=== PATIENT | female | born 2005 | race Caucasian/White ===

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

== ENCOUNTER 2023-02-14 21:44 | Emergency (ER) | payer OTHER, SELFPAY ==
[2023-02-14 21:47] VITALS: BP 128/72; PULSE 80; RESP 20; TEMP 36.9; O2SAT 99; BMI 25.8
--- NOTE | 2023-02-14 21:57 | ECG_ITS ---
[facility] Test Date: 2023-02-14 Pat Name: WEN CAIN Department: Room: - Gender: Female Rf Test Technician: : 2005 Requested By: [id number] Order Number: [id number] Reading MD: AZRA MATTHEW Measurements Intervals [place] Rate: 80 P: 63 WI: 144 QRS: 79 QRSD: 76 T: 51 QT: 380 QTc: 415 Interpretive Statements 1100 Sinus rhythm 9110 normal ECG Compared to ECG 12/22/2022 18:26:21 No significant changes Electronically Signed On 02-16-2023 7:15:39 EDT by AZRA MATTHEW
--- NOTE | 2023-02-14 22:09 | ED_ITS ---
HPI - General Adult General Chief complaint: Psychiatric Symptoms Stated complaint: SUICIDAL IDEATIONS Time Seen by Provider: 02/14/23 21:54 Source: patient Mode of arrival: walk-in Limitations: no limitations History of Present Illness HPI narrative: Patient is presenting to us with history of suicidal ideation as well as depression, the patient is presenting to us after she has been having nightmares at night after her epidural injection in November she has been having good nightmares That she have someone stabbed her, the patient mentioned that her main concern that he does not want to go to sleep because of she is afraid she will have the nightmares The patient is not suicidal as much as she is scared she does not have any plan to hurt herself or her baby Related Data Home Medications Medication Instructions Recorded Confirmed buspirone 10 mg tablet mg 02/14/23 cariprazine 3 mg capsule (Vraylar) mg 02/14/23 norethindrone 1 mg-ethinyl tab 02/14/23 estradiol 20 mcg (24)-iron 75 mg (4) tablet () ondansetron 4 mg disintegrating mg 02/14/23 tablet Previous Rx's Medication Instructions Recorded prazosin 1 mg capsule (Minipress) 1 mg PO BEDTIME #2 caps 02/14/23 Allergies Allergy/AdvReac Type Severity Reaction Status Date / Time No Known Drug Allergies Allergy Verified 02/14/23 21:47 Review of Systems ROS Status of ROS 10 or more systems reviewed and unremarkable except as noted in history and below PFSH PFSH Social History Smoking status: Current every day smoker Non-prescribed substance use details: Admits to smoking marijuana Previous occupational history: Unmarried, lives at home with significant other and baby Exam Narrative Exam Narrative: Nurses notes and vital signs reviewed and patient is not hypoxic. General: Well-appearing and in no apparent distress. Skin: Warm, dry, no pallor noted. No rash. Head: Normocephalic, atraumatic. Neck: Supple, non-tender. Eye: Pupils are equal, round and EOMI. No scleral icterus. Ears, Nose, Mouth, and Throat: TM are clear, no nasal mucosal hypertrophy. Oral mucosa is moist, no posterior oropharynx erythema, uvula is mid-line Cardiovascular: Regular Rate and Rhythm without murmur, gallop or rub. Respiratory: No accessory muscle use or respiratory distress. Lungs are clear to auscultation, no wheezing, rales or rhonchi Chest Wall: no tenderness Back: No midline thoracic or lumbar vertebral tenderness. No CVA tenderness Musculoskeletal: normal ROM, no calf or popliteal tenderness, no lower extremity edema/swelling GI: Abdomen is soft, non-distended. Normal bowel sounds. No masses appreciated. No tenderness to palpation. No rebound, guarding, or rigidity noted. Neurological: A&O x4. No cranial nerve dysfunction observed. No truncal ataxia. Moves all extremities. Sensation intact. Psychiatric: Cooperative and interactive. Normal mood and affect. Constitutional Vital Signs, click to edit/add: Last Vital Signs Temp 98.5 F 02/14/23 21:47 Pulse 80 02/14/23 21:47 Resp 20 02/14/23 21:47 BP 128/72 02/14/23 21:47 Pulse Ox 99 02/14/23 21:47 Course Vital Signs Vital signs: Vital Signs Temperature 98.5 F 02/14/23 21:47 Pulse Rate 80 02/14/23 21:47 Respiratory Rate 20 02/14/23 21:47 Blood Pressure 128/72 02/14/23 21:47 Pulse Oximetry 99 02/14/23 21:47 Temperature 98.5 F 02/14/23 21:47 Pulse Rate 80 02/14/23 21:47 Respiratory Rate 20 02/14/23 21:47 Blood Pressure 128/72 02/14/23 21:47 Pulse Oximetry 99 02/14/23 21:47 Medical Decision Making [facility] Narrative Medical decision making narrative: EKG showing sinus rhythm with a heart rate of [address] elevation or depression The patient CBC and chemistry showed no acute significant pathology The patient case was discussed with the [facility] psychiatric service and they extensively spoke with the patient as well, the patient need management of her nightmares and she was on Minipress before but it was stopped and the plan was to restart it again. The patient will be restarted again on Minipress for the next 2 days until she is evaluated Thursday morning by the psychiatry service juliana reaves, I did speak with the patient and clarified that she is agreeable with this plan and she mentioned that she is agreeable with this plan she was given clonidine 0.1 mg in the ER before getting discharged as alternative The patient to come back to the ER in case of any new symptoms or concerns the patient again expressed that she is agreeable with the plan and she will come back to the ER in case of any new symptoms or any concerns The patient again is not suicidal but is scared of nightmares and worried and anxious about it Lab Data Labs: Lab Results 02/14/23 02/14/23 Range/Units 22:09 22:15 WBC 6.6 (4.0-11.0) 10^3/uL RBC 4.24 (4.20-5.40) 10^6/uL Hgb 10.7 L (12.0-16.0) g/dL Hct 33.9 L (36.0-48.0) % MCV 80.0 L (81.0-99.0) fL MCH 25.2 L (26.7-34.0) pg MCHC 31.6 (29.9-35.2) g/dL RDW 14.6 (11.0-15.0) % Plt Count 331 (150-450) 10^3/uL MPV 8.9 L (9.5-13.5) fL Neut % (Auto) 44.4 (43.0-75.0) % Lymph % (Auto) 40.7 (20.5-60.0) % [place] % (Auto) 10.0 (1.7-12.0) % Eos % (Auto) 4.0 (0.9-7.0) % Baso % (Auto) 0.6 (0.2-2.0) % Neut # (Auto) 2.9 (1.4-6.5) 10^3/uL Lymph # (Auto) 2.7 (1.2-3.8) 10^3/uL [place] # (Auto) 0.7 (0.3-0.8) 10^3/uL Eos # (Auto) 0.3 (0.0-0.7) 10^3/uL Baso # (Auto) 0.0 (0.0-0.1) 10^3/uL Abs Immat Gran (auto) 0.02 (0.00-0.03) 10^3/uL Imm/Tot Granulo (auto) 0.3 (0.0-0.5) % Sodium 139 (136-145) mmol/L Potassium 3.6 (3.5-5.1) mmol/L Chloride 103 (98-107) mmol/L Carbon Dioxide 27.3 (21.0-32.0) mmol/L Anion Gap 12.3 BUN 8.0 (6.4-19.3) mg/dL Creatinine 0.71 (0.55-1.02) mg/dL Est GFR ( Amer) >60 (>=60) Est GFR (Non-Af Amer) >60 (>=60) BUN/Creatinine Ratio 11.3 Glucose 95 (74-106) mg/dL Calcium 8.5 (8.5-10.1) mg/dL Total Bilirubin 0.4 (0.2-1.0) mg/dL AST 27 (15-37) U/L ALT 12 L (14-59) U/L Alkaline Phosphatase 50 (46-116) U/L Total Protein 7.4 (6.4-8.2) g/dL Albumin 3.8 (3.4-5.0) g/dL Globulin 3.6 g/dL Albumin/Globulin Ratio 1.1 Salicylates <2.8 (<=19.9) mg/dL Urine Opiates Screen Negative (NEGATIVE) Ur Buprenorphine Scrn Negative (NEGATIVE) Ur Oxycodone Screen Negative (NEGATIVE) Urine Methadone Screen Negative (NEGATIVE) Ur Propoxyphene Screen Negative (NEGATIVE) Acetaminophen <2.0 L (10.0-30.0) ug/mL Ur Barbiturates Screen Negative (NEGATIVE) U Tricyclic Antidepress Negative (NEGATIVE) Ur Phencyclidine Scrn Negative (NEGATIVE) Ur Amphetamines Screen Negative (NEGATIVE) U Methamphetamines Scrn Negative (NEGATIVE) U Benzodiazepines Scrn Negative (NEGATIVE) Urine Cocaine Screen Negative (NEGATIVE) U Cannabinoids Screen Positive A (NEGATIVE) Ethanol Quant <3 mg/dL Discharge Plan Discharge Chief Complaint: Psychiatric Symptoms Clinical Impression: Nightmare disorder Patient Disposition: Home, Self-Care Time of Disposition Decision: 23:12 Prescriptions / Home Meds: New prazosin [Minipress] 1 mg capsule 1 mg PO BEDTIME Qty: 2 0RF No Action buspirone 10 mg tablet ondansetron 4 mg tablet,disintegrating Vraylar 3 mg capsule Junel Fe 24 1 mg-20 mcg (24)/75 mg (4) tablet Instructions: Anxiety in Adolescents (ED) Additional Instructions: please come back to ED in case of any concerns and follow up with [facility] psychiatry service Mon morning Stand Alone Forms: Portal Instructions Referrals: Physician,Non-Staff, MD [Primary Care Provider] - 1 week
[2023-02-14 22:21] LABS: Basophils Percent Auto 0.6 % (0.2-2.0); Eosinophils Absolute Auto 0.3 10^3/uL (0.0-0.7); Hematocrit 33.9 % (36.0-48.0); Hemoglobin 10.7 g/dL (12.0-16.0); Immature Granulocytes Abs Auto 0.02 10^3/uL (0.00-0.03); Immature Granulocytes Pct Auto 0.3 % (0.0-0.5); Lymphocytes Absolute Auto 2.7 10^3/uL (1.2-3.8); Lymphocytes Percent Auto 40.7 % (20.5-60.0); Mean Corpuscular HGB Conc 31.6 g/dL (29.9-35.2); Mean Corpuscular Hemoglobin 25.2 pg (26.7-34.0); Mean Platelet Volume 8.9 fL (9.5-13.5); Monocytes Absolute Auto 0.7 10^3/uL (0.3-0.8); Neutrophils Absolute Auto 2.9 10^3/uL (1.4-6.5); Neutrophils Percent Auto 44.4 % (43.0-75.0); Platelet Count 331 10^3/uL (150-450); Red Blood Count 4.24 10^6/uL (4.20-5.40); Red Cell Distribution Width 14.6 % (11.0-15.0); White Blood Count 6.6 10^3/uL (4.0-11.0)
[2023-02-14 22:30] LABS: Amphetamine Screen Urine NEGATIVE (NEGATIVE); Barbiturates Screen Urine NEGATIVE (NEGATIVE); Benzodiazepines Screen Urine NEGATIVE (NEGATIVE); Buprenorphine Screen Urine NEGATIVE (NEGATIVE); Cannabinoid Screen Urine POSITIVE (NEGATIVE); Cocaine Screen Urine NEGATIVE (NEGATIVE); Methadone Screen Urine NEGATIVE (NEGATIVE); Methamphetamines Screen Urine NEGATIVE (NEGATIVE); Opiate Screen Urine NEGATIVE (NEGATIVE); Oxycodone Screen Urine NEGATIVE (NEGATIVE); Phencyclidine Screen Urine NEGATIVE (NEGATIVE); Tricyclic Antidepressant Urine NEGATIVE (NEGATIVE)
[2023-02-14 22:37] LABS: Alanine Aminotransferase 12 U/L (14-59); Albumin Globulin Ratio 1.1; Albumin Level 3.8 g/dL (3.4-5.0); Alkaline Phosphatase 50 U/L (46-116); Anion Gap 12.3; Aspartate Amino Transferase 27 U/L (15-37); BUN Creatinine Ratio 11.3; Bilirubin Total 0.4 mg/dL (0.2-1.0); Calcium 8.5 mg/dL (8.5-10.1); Carbon Dioxide 27.3 mmol/L (21.0-32.0); Chloride 103 mmol/L (98-107); Estimated GFR (African America >60 (>=60); Estimated GFR (Non-African Ame >60 (>=60); Ethanol <3 mg/dL; Globulin 3.6 g/dL; Glucose 95 mg/dL (74-106); Potassium 3.6 mmol/L (3.5-5.1); Salicylate <2.8 mg/dL (<=19.9); Sodium 139 mmol/L (136-145); Total Protein 7.4 g/dL (6.4-8.2)
[2023-02-14 22:41] LABS: Acetaminophen <2.0 ug/mL (10.0-30.0)
[2023-02-14 23:27] VITALS: BP 126/76
[2023-02-14] MEDS: CLONIDINE HCL 0.1 MG TABLET PO (23:27)
== END 2023-02-14 23:36 | disposition home or self-care (01) ==
PROVIDERS: Emergency Provider Emergency Medicine
DX: F51.5 Nightmare disorder (principal); F17.210 Nicotine dependence, cigarettes, uncomplicated; F12.90 Cannabis use, unspecified, uncomplicated; Z79.899 Other long term (current) drug therapy
CPT/HCPCS: 36415; 80053; 80179; 80307; 80320; 80329; 85025; 93005; 99284

== ENCOUNTER 2024-03-28 18:09 | Emergency (ER) | payer OTHER, SELFPAY ==
[2024-03-28 18:14] VITALS: BP 119/77; PULSE 96; TEMP 37.1; O2SAT 97; BMI 22.6
--- NOTE | 2024-03-28 18:30 | ED_ITS ---
HPI - URI/Sore Throat General Chief Complaint: Upper Respiratory Infection Stated Complaint: URTI Time Seen by Provider: 03/28/24 18:27 Source: patient Limitations: no limitations History of Present Illness HPI Narrative: 18 year old female presents to the ED for sore throat, cough, congestion. Onset was 7-10 days ago. States she was diagnosed with tonsillitis at an urgent care a few days ago. She has no picked up the amoxicillin prescription that is waiting at her pharmacy. Denies fever, chills, SOB, difficulty swallowing. She is here for pain control. States Motrin causes her GI upset. Denies chance of . Related Data Home Medications ?Medication ?Instructions ?Recorded ?Confirmed amoxicillin .ROUTE 03/28/24 Allergies Allergy/AdvReac Type Severity Reaction Status Date / Time trazodone Allergy Mild nightmares Verified 03/28/24 18:14 Review of Systems ROS Constitutional Denies: fever or chills Eyes Denies: eye discharge Ears, nose, mouth, and throat Reports: throat pain, nasal discharge and nasal congestion; Denies: neck pain Cardiovascular Denies: chest pain Respiratory Reports: cough; Denies: shortness of breath, wheezing or stridor Gastrointestinal Denies: abdominal pain, nausea or vomiting Neurological Denies: headache PFSH PFSH Social History Smoking status: Current every day smoker Non-prescribed substance use details: Admits to smoking marijuana Previous occupational history: Unmarried, lives at home with significant other and baby Little interest or pleasure in doing things: not at all Feeling down, depressed, or hopeless: not at all Exam Constitutional Vital Signs, click to edit/add: Last Vital Signs Temp 98.7 F 03/28/24 18:14 Pulse 96 H 03/28/24 18:14 Resp 18 03/28/24 18:14 BP 119/77 03/28/24 18:14 Pulse Ox 97 03/28/24 18:14 O2 Del Method Room Air 03/28/24 18:14 Common normals: no apparent distress and oriented x3 General appearance: cooperative HENMT Face and sinus: normal facial exam External ear: external ears normal External auditory canal: EACs normal Tympanic membrane: TMs normal bilaterally Mouth: oral and palatal mucosa normal, lip normal and tongue normal Throat: uvula midline and posterior oropharynx abnormal erythema; no edema and no exudates Eye Common normals: conjunctivae normal and no scleral icterus Neck & C-Spine Common normals: supple Chest Chest: symmetrical chest wall rise Respiratory Common normals: normal respiratory effort Effort & inspection: able to speak in complete sentences and symmetric chest movement Cardio Common normals: regular rate and regular rhythm Neuro Common normals: oriented x3 Sensorium/orientation: awake and alert Speech: speech normal Course Vital Signs Vital signs: Vital Signs Temperature 98.7 F 03/28/24 18:14 Pulse Rate 96 H 03/28/24 18:14 Respiratory Rate 18 03/28/24 18:14 Blood Pressure 119/77 03/28/24 18:14 Pulse Oximetry 97 03/28/24 18:14 Oxygen Delivery Method Room Air 03/28/24 18:14 Temperature 98.7 F 03/28/24 18:14 Pulse Rate 96 H 03/28/24 18:14 Respiratory Rate 18 03/28/24 18:14 Blood Pressure 119/77 03/28/24 18:14 Pulse Oximetry 97 03/28/24 18:14 Oxygen Delivery Method Room Air 03/28/24 18:14 MDM - URI/Sore Throat MDM Narrative Medical decision making narrative: The patient was encouraged to pickup the amoxicillin prescription this evening and to take the medication as directed. She was medicated with Decadron and Toradol here in the ED. Follow up with pcp for a recheck, further evaluation and treatment. Return precautions were discussed. Medical Records Attestation: I reviewed the patient's medical records. Discharge Plan Discharge Chief Complaint: Upper Respiratory Infection Clinical Impression: Pharyngitis Patient Disposition: Home, Self-Care Time of Disposition Decision: 18:27 Condition: Good Mode of Transportation: Private Vehicle Prescriptions / Home Meds: No Action amoxicillin .ROUTE Print Language: Albanian Instructions: Pharyngitis (ED), Tonsillitis (ED) Additional Instructions: Return to the ER for new or worsening symptoms. Referrals: Physician,Non-Staff, MD [Primary Care Provider] - 1 week
[2024-03-28] MEDS: DEXAMETHASONE SOD PHOS 10 MG/ML VIAL PO (18:32)
[2024-03-28] MEDS: KETOROLAC TROMETHAMINE 30 MG/ML VIAL IM (18:32)
== END 2024-03-28 18:43 | disposition home or self-care (01) ==
PROVIDERS: Emergency Provider Emergency Medicine
DX: J02.9 Acute pharyngitis, unspecified (principal); F17.200 Nicotine dependence, unspecified, uncomplicated
CPT/HCPCS: 96372; 99284; J1100; J1885